=== PATIENT | male | born 1975 | race Caucasian/White ===

== ENCOUNTER 2020-05-31 15:54 | Emergency (ER) | payer OTHER ==
[~2020-05-31] VITALS: Ht 185.4 cm; Wt 108.9 kg
[2020-05-31 16:30] LABS: BASOPHILS ABSOLUTE AUTO 0.04 K/mm3 (0.00-0.23); BASOPHILS PERCENT AUTO 0 % (0-2); EOSINOPHILS ABSOLUTE AUTO 0.06 K/mm3 (0.00-0.68); EOSINOPHILS PERCENT AUTO 1 % (0-6); Hematocrit 50.2 % (37.0-53.0); Hemoglobin 16.9 g/dL (13.5-17.5); IMMATURE GRAN ABSOLUTE AUTO 0.02 K/mm3 (0.00-0.10); IMMATURE GRAN PERCENT AUTO 0 % (0-1); LYMPHOCYTES ABSOLUTE AUTO 4.05 K/mm3 (0.84-5.20); LYMPHOCYTES PERCENT AUTO 38 % (21-46); MONOCYTES ABSOLUTE AUTO 0.82 K/mm3 (0.16-1.47); MONOCYTES PERCENT AUTO 8 % (4-13); Mean Corpuscular HGB 29.2 pg (26.0-34.0); Mean Corpuscular HGB Conc 33.7 g/dL (31.5-36.5); Mean Corpuscular Volume 87 fL (80-100); Mean Platelet Volume 11.4 fL (9.1-12.4); NEUTROPHILS ABSOLUTE AUTO 5.59 K/mm3 (1.96-9.15); NEUTROPHILS PERCENT AUTO 53 % (41-73); Platelet Count 217 K/mm3 (150-400); RDW Coefficient Variation 12.5 % (11.7-14.2); RDW Standard Deviation 39.7 fL (35.1-46.3); Red Blood Cell Count 5.79 M/mm3 (4.30-5.90); White Blood Cell Count 10.58 K/mm3 (4.00-11.30)
[2020-05-31] MEDS ORDERED: Vitamin D2000 UNIT PO (16:32)
[2020-05-31] MEDS ORDERED: POTA10T (16:32)
[2020-05-31 16:51] LABS: Alanine Aminotransfer (ALT/SGP 26 U/L (12-78); Albumin, Blood 4.4 g/dL (3.4-5.0); Albumin/Globulin Ratio 1.1 (0.8-1.8); Alk Phos 84 U/L (50-136); Anion Gap 8 mmol/L (6-16); Aspartate Aminotrans (AST/SGOT 20 U/L (12-37); Bilirubin, Total 0.5 mg/dL (0.1-1.0); Blood Urea Nitrogen 17 mg/dL (8-24); Bun/Creatinine Ratio 15.9 (12.0-20.0); CO2, Blood 26 mmol/L (21-32); Calcium, Blood 9.5 mg/dL (8.5-10.1); Chloride, Blood 109 mmol/L (98-108); Creatinine, Blood 1.07 mg/dL (0.60-1.20); Globulin, Blood 3.9 g/dL (2.2-4.0); Glomerular Filtration Rate >60 (60-); Glucose, Blood 107 mg/dL (70-99); Potassium, Blood 3.9 mmol/L (3.5-5.5); Sodium, Blood 143 mmol/L (136-145); Total Protein, Blood 8.3 g/dL (6.4-8.2); Troponin I <0.015 ng/mL (0.000-0.040)
== END 2020-05-31 18:29 | disposition home or self-care (01) ==
LOC: ER 15:54
PROVIDERS: Physician Assistant
DX: R51.9 Headache, unspecified (principal); R07.9 Chest pain, unspecified; Z79.899 Other long term (current) drug therapy; Z88.6 Allergy status to analgesic agent; Z88.1 Allergy status to other antibiotic agents; Z88.0 Allergy status to penicillin; Z88.2 Allergy status to sulfonamides; Z88.8 Allergy status to other drugs, medicaments and biological substances
CPT/HCPCS: 71046; 80053; 84484; 85025; 93005; 93010; 96374; 96375; 99284-25; J1100; J1200; J2765; J3010

== ENCOUNTER 2020-10-07 07:36 | Emergency (ER) | payer OTHER ==
[~2020-10-07] VITALS: Ht 185.4 cm; Wt 108.9 kg
[~2020-10-07 07:36] MED LIST: POTA10T; Vitamin D2000 UNIT PO
[2020-10-07] MEDS ORDERED: Roxicodone5 MG PO (08:55)
== END 2020-10-07 09:10 | disposition home or self-care (01) ==
LOC: ER 07:36
DX: S86.112A Strain of other muscle(s) and tendon(s) of posterior muscle group at lower leg level, left leg, initial encounter (principal); Z88.1 Allergy status to other antibiotic agents; Z88.6 Allergy status to analgesic agent; Z88.0 Allergy status to penicillin; Z91.013 Allergy to seafood; W01.0XXA Fall on same level from slipping, tripping and stumbling without subsequent striking against object, initial encounter
CPT/HCPCS: 73610; 76882; 99284-25; A9270

== ENCOUNTER 2022-01-19 09:18 | Day surgery (SDC) | payer OTHER ==
[~2022-01-19] VITALS: Ht 182.9 cm; Wt 105.2 kg
[~2022-01-19 09:18] MED LIST changes: +Roxicodone5 MG PO
[2022-01-19] MEDS ORDERED: FISH OIL 1,2001 EAC7 PO (10:10)
[2022-01-19] MEDS ORDERED: ATEN25 PO (10:10)
--- NOTE | 2022-01-19 10:52 | NUR ---
01/19/22 1052 LIA ELDER VANCOMYCIN STARTED 1052 BY [facility]
--- NOTE | 2022-01-19 11:56 | NUR ---
01/19/22 1156 SCOTT GIRON 0.15MG OF EPI (1MG/1ML) ADDED TO 30MLS OF ROPIVACAINE 0.5% TO CREATE A LOCAL SOLUTION OF ROPIVACAINE 0.5% WITH EPI 1:200,000. POURED ONTO STERILE FIELD FOR USE DURING CASE.
--- NOTE | 2022-01-19 13:36 | NUR ---
01/19/22 1336 TOMMY CHINCHILLA STATES PAIN IS 10/10. FENTANYL 50MCG GIVEN IV PUSH. CONTACTED DR. LACY. VERBAL ORDER FOR DILAUDID WELL.
--- NOTE | 2022-01-19 14:08 | NUR ---
01/19/22 1408 TOMMY CHINCHILLA 2ND DOSE OF DILAUDID 1MG= 2MG. PAIN 01/03
== END 2022-01-19 15:20 | disposition home or self-care (01) ==
LOC: ORSCSDS 09:18
PROVIDERS: Podiatrist Foot & Ankle Surgery
PROC: 0LXT0ZZ Transfer Left Ankle Tendon, Open Approach (ICD-10-PCS; principal; 2022-01-19 11:00)
PROC: 0L8P0ZZ Division of Left Lower Leg Tendon, Open Approach (ICD-10-PCS; principal; 2022-01-19 11:00)
PROC: 0LQP0ZZ Repair Left Lower Leg Tendon, Open Approach (ICD-10-PCS; principal; 2022-01-19 11:00)
DX: S86.012S Strain of left Achilles tendon, sequela (principal); M25.572 Pain in left ankle and joints of left foot; I10 Essential (primary) hypertension; Z79.899 Other long term (current) drug therapy
CPT/HCPCS: A9270; C1713; J0171; J1100; J1170; J2250; J2405; J2704; J2795; J3010; J3370; J7120

== ENCOUNTER 2024-02-05 10:29 | Observation (INO) | payer OTHER ==
[~2024-02-05] VITALS: Ht 185.4 cm; Wt 106.6 kg
[~2024-02-05 10:29] MED LIST changes: +ATEN25 PO; +FISH OIL 1,2001 EAC7 PO
[2024-02-05 11:18] LABS: BASOPHILS ABSOLUTE AUTO 0.05 K/mm3 (0.00-0.23); BASOPHILS PERCENT AUTO 1 % (0-2); EOSINOPHILS ABSOLUTE AUTO 0.13 K/mm3 (0.00-0.68); EOSINOPHILS PERCENT AUTO 1 % (0-6); Hemoglobin 15.9 g/dL (13.5-17.5); IMMATURE GRAN ABSOLUTE AUTO 0.06 K/mm3 (0.00-0.10); IMMATURE GRAN PERCENT AUTO 1 % (0-1); LYMPHOCYTES ABSOLUTE AUTO 3.25 K/mm3 (0.84-5.20); LYMPHOCYTES PERCENT AUTO 35 % (21-46); MONOCYTES ABSOLUTE AUTO 0.64 K/mm3 (0.16-1.47); MONOCYTES PERCENT AUTO 7 % (4-13); Mean Corpuscular HGB Conc 34.6 g/dL (31.5-36.5); Mean Corpuscular Volume 87 fL (80-100); Mean Platelet Volume 11.2 fL (9.1-12.4); NEUTROPHILS ABSOLUTE AUTO 5.08 K/mm3 (1.96-9.15); NEUTROPHILS PERCENT AUTO 55 % (41-73); Platelet Count 234 K/mm3 (150-400); RDW Coefficient Variation 12.3 % (11.7-14.2); RDW Standard Deviation 39.2 fL (35.1-46.3); White Blood Cell Count 9.21 K/mm3 (4.00-11.30)
[2024-02-05 11:34] LABS: Albumin/Globulin Ratio 1.1 (0.8-1.8); Bilirubin, Total 0.5 mg/dL (0.1-1.0); Bun/Creatinine Ratio 14.7 (12.0-20.0); Calcium, Blood 9.8 mg/dL (8.5-10.1); Creatinine, Blood 1.02 mg/dL (0.60-1.20); Globulin, Blood 3.8 g/dL (2.2-4.0); Total Protein, Blood 7.8 g/dL (6.4-8.2)
[2024-02-05] MEDS ORDERED: Acetaminophen 500 MG Tab PO ONE (12:50)
[2024-02-05] MEDS ORDERED: Ondansetron HCl 2 MG / ML 2ML Vial IV ONE (12:50)
[2024-02-05] MEDS ORDERED: Lidocaine 4% 1 Patch TOP ONE (13:20)
[2024-02-05] MEDS ORDERED: DiphenhydrAMINE HCL 25 MG Cap PO ONE (13:20)
[2024-02-05] MEDS ORDERED: Clopidogrel Bisulfate 75 MG Tab PO ONE (13:25)
[2024-02-05 15:43] LABS: CHOL/HDL RATIO 7.8; Cholesterol 164 mg/dL (50-200); HDL Cholesterol 21 mg/dL (>39); LDL/HDL RATIO 4.2; Low Density Lipoprotein Chol 88 mg/dL (0-110); Triglycerides 277 mg/dL (30-160); Very Low Density Lipoprot Chol 55 mg/dL (6-32)
[2024-02-05] MEDS ORDERED: Acetaminophen 325 MG TABLET PO PRN (16:00)
[2024-02-05 17:00] VITALS: BP 152/98
--- NOTE | 2024-02-05 17:57 | NUR ---
VERIFIED WITH IMAGING THAT NUC MED HAS LEFT FOR TODAY SO NO STRESS TEST TODAY. PT TO BE NPO AT MIDNIGHT. HEART HEALTHY DIET ORDERED.
[2024-02-05 19:16] VITALS: BP 140/90
--- NOTE | 2024-02-05 19:42 | NUR ---
PT ARRIVED TO UNIT AT APROX 1747 FROM ER. PT DENIES CP OR SOB ON ARRIVAL, VSS UPON ARRIVAL. TELE PLACED, SR 60'S WHEN VERRIFIED. PT TO BE NPO AT MIDNIGHT AND HAVE STRESS TEST TOMORRW (VERIFIED WITH NUC MED). PT PLACED ON LOW SODIUM DIET PER .
[2024-02-05] MEDS ORDERED: Atenolol 25 MG Tab PO SCH (21:00)
[2024-02-05] MEDS ORDERED: Methyl Salicylate/Menth/Camph 57 GM TUBE TOP PRN (22:05)
[2024-02-05] MEDS ORDERED: OxyCODONE HCL 5 MG TAB PO PRN (22:05)
[2024-02-06 04:40] VITALS: BP 136/90
[2024-02-06] MEDS ORDERED: DiphenhydrAMINE HCl 50 MG/ML 1ML Vial IV ONE (04:50)
[2024-02-06 04:58] LABS: BASOPHILS ABSOLUTE AUTO 0.07 K/mm3 (0.00-0.23); BASOPHILS PERCENT AUTO 1 % (0-2); EOSINOPHILS ABSOLUTE AUTO 0.29 K/mm3 (0.00-0.68); EOSINOPHILS PERCENT AUTO 2 % (0-6); Hematocrit 48.1 % (37.0-53.0); Hemoglobin 16.1 g/dL (13.5-17.5); IMMATURE GRAN ABSOLUTE AUTO 0.06 K/mm3 (0.00-0.10); IMMATURE GRAN PERCENT AUTO 1 % (0-1); LYMPHOCYTES ABSOLUTE AUTO 5.24 K/mm3 (0.84-5.20); LYMPHOCYTES PERCENT AUTO 39 % (21-46); MONOCYTES ABSOLUTE AUTO 0.96 K/mm3 (0.16-1.47); MONOCYTES PERCENT AUTO 7 % (4-13); Mean Corpuscular HGB 29.5 pg (26.0-34.0); Mean Corpuscular HGB Conc 33.5 g/dL (31.5-36.5); Mean Corpuscular Volume 88 fL (80-100); Mean Platelet Volume 11.2 fL (9.1-12.4); NEUTROPHILS ABSOLUTE AUTO 6.67 K/mm3 (1.96-9.15); NEUTROPHILS PERCENT AUTO 50 % (41-73); Platelet Count 225 K/mm3 (150-400); RDW Coefficient Variation 12.6 % (11.7-14.2); RDW Standard Deviation 40.3 fL (35.1-46.3); Red Blood Cell Count 5.45 M/mm3 (4.30-5.90); White Blood Cell Count 13.29 K/mm3 (4.00-11.30)
--- NOTE | 2024-02-06 05:15 | NUR ---
SHIFT SUMMARY VSS, TELE HAD READ SINUS SHIV 50-60'S T/O THE NIGHT. PT SLEPT MINIMALLY T/O THE NIGHT. PT REMAINS INDEP IN ROOM. VOIDING W/O DIFFICULTY. PT EXPERIENCEED INTERMITTENT LUE PAIN, CLAVICAL, AND SHOULDER PAIN THAT EXTENDED TO HIS STERNUM. PT REPORTING THAT THIS PAIN WORSENED WITH DEEP INSPIRATION AND MOVEMENT. RECIEVED ORDER FOR OXY AND [place] CREAM. PT REPORTS SIGNIFIGANT RELIEF THIS AM. PT C/O SEVERE NAUSEA THIS AM, IV BENEDRYL OBTAINED PER PT REQUEST. PT HAS BEEN NPO SINCE 0000 IN ANTICIPATION FOR HIS STRESS TEST. OVERALL NO ACUTE EVENTS NOTED. PLAN TO AWAIT STRESS TEST RESULTS AND PLAN OF CARE. THE PATIENT IS CURRENTLY RESTING, IN NO DISTRESS, CALL LIGHT IN REACH
[2024-02-06 05:59] LABS: Albumin, Blood 3.8 g/dL (3.4-5.0); Bilirubin, Total 0.8 mg/dL (0.1-1.0); Bun/Creatinine Ratio 12.6 (12.0-20.0); Calcium, Blood 9.6 mg/dL (8.5-10.1); Creatinine, Blood 1.03 mg/dL (0.60-1.20); Globulin, Blood 3.7 g/dL (2.2-4.0); Total Protein, Blood 7.5 g/dL (6.4-8.2)
[2024-02-06] MEDS ORDERED: Enoxaparin 40 MG/0.4 ML SYR SC SCH (09:00)
[2024-02-06] MEDS ORDERED: Atorvastatin 40 MG Tab PO SCH (09:00)
[2024-02-06] MEDS ORDERED: Caffeine Citrated 60 MG/3 ML Vial ONE (13:26)
[2024-02-06] MEDS ORDERED: Regadenoson 0.4 MG/5 ML SYRINGE ONE (13:26)
[2024-02-06 15:29] VITALS: BP 120/89
[2024-02-06] MEDS ORDERED: Acetaminophen325 M1 PO (16:37)
[2024-02-06] MEDS ORDERED: METSALMENC TOP (16:44)
--- NOTE | 2024-02-06 17:34 | NUR ---
DISCHARGE PT DENIED CHEST PAIN T/O SHIFT. IND IN ROOM, STRESS TEST DONE TODAY. TOLERATING DIET WELL. IV REMOVED WNL. ALL INSTRUCTIONS GONE OVER WITH PATIENT. ALL QUESTIONS ANSWERED. ELECTED TO AMBULATE ON HIS OWN.
== END 2024-02-06 17:35 | disposition home or self-care (01) ==
LOC: ER 10:29 → SURS 10:30 → ER 16:52 → SURS 17:21
PROVIDERS: Student in an Organized Health Care Education/Training Program; ADMIT Internal Medicine
DX: R07.89 Other chest pain (principal); I16.0 Hypertensive urgency; E78.5 Hyperlipidemia, unspecified; I10 Essential (primary) hypertension; J45.909 Unspecified asthma, uncomplicated; Z87.891 Personal history of nicotine dependence; Z88.0 Allergy status to penicillin; Z88.1 Allergy status to other antibiotic agents; Z88.6 Allergy status to analgesic agent; Z88.8 Allergy status to other drugs, medicaments and biological substances; Z79.899 Other long term (current) drug therapy
CPT/HCPCS: 36415; 71045; 78452; 80053; 80061; 83036; 83880; 84484; 85025; 85379; 93005; 93010; 93017; 94762; 96374; 96375; 99285-25; A9270; A9500; G0378; J0706; J1200; J2405; J2785